=== PATIENT | female | born 1990 | race Caucasian/White ===

== ENCOUNTER 2017-12-01 16:59 | Emergency (ER) | payer MEDICAID, OTHER ==
[2017-12-01 17:54] LABS: SQUAMOUS EPITHIAL 14 /hpf (0-5); URINE BACTERIA RARE (<OCC); URINE BILIRUBIN NEGATIVE (NEGATIVE); URINE BLOOD NEGATIVE (NEGATIVE); URINE CLARITY Hazy (Clear); URINE COLOR Yellow (YELLOW); URINE GLUCOSE (UA) NORMAL (Normal); URINE LEUKOCYTE ESTERASE NEG Leu/uL (Negative); URINE PROTEIN 1+ mg/dL (NEGATIVE)
[2017-12-01 17:55] LABS: HCG,QUALITATIVE URINE POSITIVE (NEGATIVE)
--- NOTE | 2017-12-01 18:22 | C.PDOC ---
History Of Present Illness <Mitali Schwartz - Last Filed: 12/01/17 18:24> <Christiano Serrano - Last Filed: 12/01/17 20:52> 27 yo female come in for evaluation of diffuse cramping lower abdominal pain gradually developed for past 2 days. Pt unable to remember LNMP " maybe August", took test at home 2 days and was positive. Otherwise, pt denies recent illness, fever, chills, headache, dizziness, N/V/D, UTI sx, vaginal bleeding/discharges or vaginal irritation. Ambulate to Ed for evaluation , not in any apparent distress. (Mitali Schwartz) toddler @ bedside, suspect pt is (Christiano Serrano) History Per: Patient <Mitali Schwartz - Last Filed: 12/01/17 18:24> <Christiano Serrano - Last Filed: 12/01/17 20:52> Time Seen by Provider: 12/01/17 17:21 Chief Complaint (Nursing): Abdominal Pain Past Medical History Reviewed: Historical Data, Nursing Documentation, Vital Signs - Medical History PMH: No Chronic Diseases Surgical History: No Surg Hx Family History: States: No Known Family Hx - Social History Hx Tobacco Use: No Hx Alcohol Use: No Hx Substance Use: No - Immunization History Hx Tetanus Toxoid Vaccination: No Hx Influenza Vaccination: No Hx Pneumococcal Vaccination: No <Mitali Schwartz - Last Filed: 12/01/17 18:24> Vital Signs: Last Vital Signs Temp 98.2 F 12/01/17 17:13 Pulse 85 12/01/17 17:13 Resp 16 12/01/17 17:13 BP 91/58 L 12/01/17 17:13 Pulse Ox 100 12/01/17 18:24 Review Of Systems Except As Marked, All Systems Reviewed And Found Negative. Constitutional: Negative for: Fever, Chills Eyes: Negative for: Vision Change ENT: Negative for: Ear Discharge, Nose Discharge, Throat Pain, Throat Swelling Cardiovascular: Negative for: Chest Pain, Palpitations, Light Headedness Respiratory: Negative for: Cough, Shortness of Breath, Wheezing Gastrointestinal: Positive for: Abdominal Pain. Negative for: Nausea, Vomiting , Diarrhea, Melena, Hematochezia, Hematemesis Genitourinary: Negative for: Dysuria, Vaginal Discharge, Vaginal Bleeding Musculoskeletal: Negative for: Neck Pain, Back Pain Skin: Negative for: Rash Neurological: Negative for: Altered Mental Status <Mitali Schwartz - Last Filed: 12/01/17 18:24> Physical Exam - Physical Exam Appears: Well, Non-toxic, No Acute Distress Skin: Normal Color, Warm, Dry, No Rash Head: Normacephalic Eye(s): bilateral: PERRL Nose: No Flaring, No Discharge Oral Mucosa: Moist Throat: No Drooling Neck: Trachea Midline, Supple Cardiovascular: Rhythm Regular, No Murmur Respiratory: No Decreased Breath Sounds, No Accessory Muscle Use, No Stridor, No Wheezing Gastrointestinal/Abdominal: Soft, Tenderness (mod suprapubic), No Distention, No Guarding, No Rebound Back: No CVA Tenderness Extremity: Normal ROM, No Pedal Edema, No Deformity Neurological/Psych: Oriented x3, Normal Speech <Mitali Schwartz - Last Filed: 12/01/17 18:24> ED Course And Treatment - Laboratory Results Urine POC: Positive O2 Sat by Pulse Oximetry: 100 Pulse Ox Interpretation: Normal <Mitali Schwartz - Last Filed: 12/01/17 18:24> - Laboratory Results Result Diagrams: 12/01/17 18:53 12/01/17 18:53 Lab Interpretation: Normal (QHCG 119K, O+,) Urine POC: Positive Pulse Ox Interpretation: Normal - CT Scan/US US Pregnany 1st Trimester Other Rad Studies (CT/US): Read By Radiologist, Radiology Report Reviewed CT/US Interpretation: IMPRESSION: 1. Single viable intrauterine c/w 8 weeks. 2. 1.6 x 0.4 x 0.7 cm subchorionic hemorrhage. Reevaluation Time: 20:50 Reassessment Condition: Improved <Christiano Serrano - Last Filed: 12/01/17 20:52> Medical Decision Making <Mitali Schwartz - Last Filed: 12/01/17 18:24> <Christiano Serrano - Last Filed: 12/01/17 20:52> Medical Decision Makin: signed over @ 1930 to f/u pelvic preg US and dispo appropriately pt seen and examined NAD belly benign UA neg QHCG 119K O+ IUP @ 8 weeks (Christiano Serrano) Disposition <Mitali Schwartz - Last Filed: 12/01/17 18:24> Doctor Will See Patient In The: Office Counseled Patient/Family Regarding: Studies Performed, Diagnosis - Disposition Disposition Time: 20:51 <Christiano Serrano - Last Filed: 12/01/17 20:52> - Disposition Disposition: HOME/ ROUTINE Condition: GOOD Forms: [employer] (Filipino) - Clinical Impression Clinical Impression: at early stage
[2017-12-01 18:57] LABS: BASO # 0.1 K/uL (0.0-0.2); BASO % 0.7 % (0.0-2.0); EOS # 0.1 K/uL (0.0-0.7); EOS % 0.5 % (0.0-4.0); HEMOGLOBIN 11.6 g/dL (11.0-16.0); LYMPH # 3.1 K/uL (1.0-4.3); LYMPH % 28.7 % (20.0-40.0); MEAN CELL VOLUME 87.8 fL (81.0-99.0); MEAN CORPUSCULAR HEMOGLOBIN 30.6 pg (27.0-31.0); MEAN CORPUSCULAR HGB CONC 34.8 g/dL (33.0-37.0); MEAN PLATELET VOLUME 9.6 fL (7.2-11.7); MONO # 0.7 K/uL (0.0-0.8); MONO % 6.3 % (0.0-10.0); NEUT # 6.8 K/uL (1.8-7.0); NEUT % 63.8 % (50.0-75.0); RBC 3.79 Mil/uL (3.80-5.20); RED CELL DISTRIBUTION WIDTH 13.6 % (11.5-14.5); WHITE BLOOD COUNT 10.7 K/uL (4.8-10.8)
[2017-12-01 19:12] LABS: BLOOD UREA NITROGEN 9 mg/dL (7-17); CALCIUM 9.1 mg/dl (8.6-10.4); GFR AFRICAN-AMERICAN > 60; GFR NON-AFRICAN AMERICAN > 60
[2017-12-01 21:02] VITALS: BP 100/60; PULSE 80; RESP 14; TEMP 98; O2SAT 99
--- NOTE | 2017-12-02 16:08 | US ---
PROCEDURE: OB Pelvic Ultrasound HISTORY: Lower abdominal pain. LMP: NA ; Date unknown COMPARISON: None available. FINDINGS: UTERUS: Uterus is anteverted measuring approximately 9.5 x 6.5 x 8.3 cm. Single living intrauterine gestation Gestational sac: MSD = 2.98 cm = 7 w 6 d Yolk sac: 0.36 cm pole: CRL = 1.63 cm = 8 w 0 d Heart rate: 154 bpm. Average ultrasound age: 8 w 0 days 0 weeks 4 days Gloria-gestational hemorrhage: Small subchorionic hemorrhage measuring approximately 1.6 x 0.4 x 0.7 cm. Date of delivery (Ultrasound estimated) : 07/13/2018 CERVIX: Cervix is closed measuring approximately 3.5 cm. . No cervical abnormality seen. RIGHT OVARY: Measures 3.5 x 3.1 x 4.1 cm. No mass lesion. Normal flow. . There is a small cyst possibly representing corpus luteum cyst of measuring 1.4 x 1.1 x 1.4 cm LEFT OVARY: Measures 3.4 x 2.2 x 3.3 cm. No solid mass. Normal flow. FREE FLUID: None. OTHER FINDINGS: None. IMPRESSION: Living intrauterine gestation estimated approximately 8 weeks 0 days 0 weeks 4 days. Small subchorionic hemorrhage. See above discussion for additional details. Note that preliminary report provided by overnight radiology service
== END 2017-12-01 21:02 | disposition home or self-care (01) ==
LOC: C.ER 16:59
DX: O26.91 Pregnancy related conditions, unspecified, first trimester (principal); Z3A.08 8 weeks gestation of pregnancy

== ENCOUNTER 2018-03-22 17:45 | Emergency (ER) | payer OTHER ==
[2018-03-22 18:32] VITALS: BMI 25.3
[2018-03-22 18:48] LABS: SQUAMOUS EPITHIAL 1 /hpf (0-5); URINE BILIRUBIN NEGATIVE (NEGATIVE); URINE BLOOD NEGATIVE (NEGATIVE); URINE CLARITY Clear (Clear); URINE COLOR Yellow (YELLOW); URINE GLUCOSE (UA) NORMAL (Normal); URINE LEUKOCYTE ESTERASE NEG Leu/uL (Negative); URINE PROTEIN NEGATIVE (NEGATIVE); URINE UROBILINOGEN NORMAL mg/dL (0.2-1.0)
--- NOTE | 2018-03-22 20:04 | OBHP ---
Datetime: 03/22/2018 19:54 IP Chief Complaint Other: Vaginal spotting with thick white discharge for few days now Admit Comment, IP Provider: 27 yo female with an IUP at 24 weeks and presents with c/o of t hick white vaginal discharge with spots of blood for a couple of days and worsen with intercourse. Admits to + FM and denies gush of fluid Cx close, long and high and no blood visualized. No pool of fluid Vaginal culture obtained and sent Diflucan given x 1 for Michaelle vaginitis UA Negative Advised to pelvic rest for 3-4 days Will f/up with her doctor in 7-10 days or prior if needed Pelvic Type - PN: Adequate Extremities - PN: Normal Abdomen - PN: Normal Back - PN: Normal Breast - PN: Not Done Lungs - PN: Normal Heart - PN: Normal Thyroid - PN: Normal Neurologic - PN: Normal HEENT - PN: Normal General - PN: Normal FHR - Baseline A Provider: 140 Membranes, Provider: Intact Contraction Comments Provider: Irritability only Comments, ACOG Physical Exam: SSE + thick white discharge noted c/w Michaelle and no blood noted in va chel. Gestation - Est Wks by US: 24.0 EGA AdmitDate IP: 24.0 Vital Signs Provider: Reviewed; Within Normal Limits IP Chief Complaint: Maternal discomfort NICHD Decel Fetus A IP Provider: None Dilatation, Provider: 0 Effacement, Provider: 0 Station, Provider: high Genitourinary Exam: Normal DTRs - PN: Normal
[2018-03-23 00:21] VITALS: BP 96/57; PULSE 67; RESP 18; TEMP 97
== END 2018-03-22 20:00 | disposition home or self-care (01) ==
LOC: C.EROB 17:45
DX: O26.852 Spotting complicating pregnancy, second trimester (principal); Z3A.24 24 weeks gestation of pregnancy